=== PATIENT | female | born 1995 | race Caucasian/White ===

== ENCOUNTER → 2020-07-14 12:54 | Outpatient (CLI) | payer OTHER, SELFPAY ==
[2020-07-14 13:34] LABS: COVID19 -Nasal RAPID Negative (Negative)
== END ==
PROVIDERS: Visit Provider Physician Assistant
DX: Z20.828 Contact with and (suspected) exposure to other viral communicable diseases (principal); J02.9 Acute pharyngitis, unspecified
CPT/HCPCS: 87070; 87635